=== PATIENT | female | born 1940 | race Hispanic/Latino ===

== ENCOUNTER 2016-11-17 17:16 | Inpatient (IN) | payer MEDICARE ==
--- NOTE | 2016-11-17 18:02 | Emergency Department Report ---
HPI - General Chief Complaint: Nausea/Vomiting/Diarrhea Time Seen by Provider: 11/17/16 17:47 - HPI HPI: This is a 76-year-old female presents to the emergency department via EMS from home with complaint of feeling "sick", weak and having diarrhea for the past few days. Patient says that she been having loose stool about 2-3 times per day. She denies any blood seen in the stool. The patient says that she fell yesterday because she felt slightly weak. She also developed the bed today when she was reaching for something and lost her balance. At that point she could not get back up until her daughter was able to find her and call for an ambulance. She denies any fever, nausea, vomiting, chest pain, back pain or shortness of breath. She has a history of atrial fibrillation, diabetes and hypertension. Her primary care doctor is a Dr. Murray. No recent travel or sick contacts at home. ED Past Medical Hx - Past Medical History Previous Medical History?: Yes Hx Hypertension: Yes Hx Diabetes: Yes Hx Arthritis: Yes Hx Kidney Stones: Yes Additional medical history: gout - Surgical History Hx Cholecystectomy: Yes Hx Appendectomy: Yes Additional Surgical History: vein surgery to legs - Social History Smoking Status: Never Smoker Substance Use Type: None - Medications Home Medications: Home Medications Medication Instructions Recorded Confirmed Last Taken Type Carvedilol [Coreg] 25 mg PO BID 03/24/14 11/17/16 11/17/16 History Digoxin [Lanoxin] 0.125 mg PO DAILY 03/24/14 11/17/16 11/17/16 History Omeprazole [PriLOSEC] 40 mg PO DAILY 03/24/14 11/17/16 11/17/16 History traMADol [Ultram 50 MG tab] 50 mg PO BID PRN 03/24/14 11/17/16 11/17/16 History Potassium Chloride [K-Dur] 10 meq PO QDAY #30 tablet 03/27/14 11/17/16 11/17/16 Rx Allopurinol [Zyloprim] 300 mg PO QDAY 08/14/14 11/17/16 11/17/16 History Gabapentin 400 mg PO BID 08/14/14 11/17/16 11/17/16 History Warfarin [Coumadin] 2.5 mg PO QDAY 08/14/14 11/17/16 11/17/16 History hydrALAZINE [Apresoline] 50 mg PO BID 08/14/14 11/17/16 11/17/16 History Furosemide [Lasix] 20 mg PO DAILY 11/17/16 11/17/16 11/17/16 History ED Review of Systems ROS: Stated complaint: N/V Other details as noted in HPI Comment: All other systems reviewed and negative Constitutional: weakness. denies: chills, fever Eyes: denies: eye pain, eye discharge, vision change ENT: denies: ear pain, throat pain Respiratory: denies: cough, shortness of breath, wheezing Cardiovascular: denies: chest pain, palpitations Gastrointestinal: diarrhea. denies: nausea, vomiting Genitourinary: denies: urgency, dysuria, discharge Musculoskeletal: denies: back pain, joint swelling, arthralgia Skin: denies: rash, lesions Neurological: weakness. denies: headache, numbness, paresthesias Physical Exam - Physical Exam Vital Signs: Vital Signs 11/17/16 11/17/16 11/17/16 17:35 17:36 17:41 Temperature 97.8 F Pulse Rate 92 H 92 H Respiratory 12 15 Rate Blood Pressure 113/61 O2 Sat by Pulse 95 95 Oximetry Physical Exam: GENERAL: The patient is well-developed well-nourished. HEENT: Normocephalic. Atraumatic. Extraocular motions are intact. Patient has moist mucous membranes. Pupils equal reactive to light laterally. NECK: Supple. Trachea is midline. CHEST/LUNGS: Clear to auscultation. There is no respiratory distress noted. HEART/CARDIOVASCULAR: Regular. There is no tachycardia. There is no gallop rub or murmur. ABDOMEN: Abdomen is soft, nontender. Patient has normal bowel sounds. There is no abdominal distention. SKIN: Skin is warm and dry. NEURO: The patient is awake, alert. The patient is cooperative. The patient has no focal neurologic deficits. The patient has normal speech. Cranial nerves II through XII grossly intact. MUSCULOSKELETAL: There is no tenderness or deformity. There is no limitation range of motion. There is no evidence of acute injury. ED Course Vital Signs 11/17/16 11/17/16 11/17/16 17:35 17:36 17:41 Temperature 97.8 F Pulse Rate 92 H 92 H Respiratory 12 15 Rate Blood Pressure 113/61 O2 Sat by Pulse 95 95 Oximetry ED Medical Decision Making - Lab Data Result diagrams: 11/17/16 18:05 11/17/16 18:05 - EKG Data -: EKG Interpreted by Me - EKG Data When compared to previous EKG there are: previous EKG unavailable Interpretation: other (atrial fibrillation, normal axis, normal intervals, no ST elevation [place], heart rate of 80 bpm) - Radiology Data Radiology results: report reviewed CT of the head does not show any acute process including no hemorrhage, mass, shift, diffuse edema or skull fracture. - Medical Decision Making This is a 76-year-old female presents to the emergency department with complaint of nausea, vomiting and weakness with a few falls over the past few days. The patient does not have any obvious focal, motor or sensory deficits. Her cranial nerves are intact. The patient's labs show some renal insufficiency as well as a significant urinary tract infection. Due to the patient's weakness and recent falls a CT of the head was done without contrast that did not show any bleed, shift, mass or any acute process. Patient had a abdominal and chest x-ray that did not show any acute processes well. Patient started having some episodes of hypotension which could be related to her urinary tract infection. She was given a total of 2 L of IV fluid resuscitation. No more was going to be given as the patient does have a history of CHF and the plan was to put a central line and start pressors if necessary. However shortly afterwards the patient's blood pressure appeared to rebound and at last check was systolic 115. However the patient will be admitted to hospital for further evaluation, IV antibiotics and treatment. Patient understands and agrees to plan. She's been accepted for admission by the hospitalist, Dr. Orozco. - Differential Diagnosis UTI, TIA, sepsis, [place] Critical Care Time: No Critical care attestation.: If time is entered above; I have spent that time in minutes in the direct care of this critically ill patient, excluding procedure time. ED Disposition Clinical Impression: Renal insufficiency, Weakness UTI (urinary tract infection) Qualifiers: Urinary tract infection type: acute cystitis Hematuria presence: without hematuria Qualified Code(s): N30.00 - Acute cystitis without hematuria Hypotension Qualifiers: Hypotension type: unspecified hypotension type Qualified Code(s): I95.9 - Hypotension, unspecified Disposition: OP ADMITTED IP TO THIS HOSP Is pt being admited?: Yes Condition: Stable Referrals: PRIMARY CARE, [Primary Care Provider] - 3-5 Days Time of Disposition: 23:42
[2016-11-17 18:37] LABS: BUN/Creatinine Ratio 8.66; Calcium 8.8 mg/dL (8.4-10.2); Chloride 96.4 mmol/L (98-107); Potassium 3.5 mmol/L (3.6-5.0)
[2016-11-17 18:38] LABS: Hemoglobin 11.7 gm/dl (10.1-14.3); Mean Corpuscular HGB Conc 31 % (30-34); Mean Corpuscular Hemoglobin 27 pg (28-32); Mean Corpuscular Volume 88 fl (79-97); Platelet Count 223 K/mm3 (140-440); Red Blood Count 4.31 M/mm3 (3.65-5.03); Red Cell Distribution Width 16.3 % (13.2-15.2); White Blood Count 8.5 K/mm3 (4.5-11.0)
[2016-11-17 18:42] LABS: Alanine Aminotransferase 5 units/L (7-56); Albumin 3.5 g/dL (3.9-5); Alkaline Phosphatase 203 units/L (35-129); Bilirubin,Direct 0.3 mg/dL (0-0.2); Creatine Kinase 37 units/L (30-135)
[2016-11-17 18:48] LABS: INR 2.34 (0.87-1.13)
--- NOTE | 2016-11-17 18:59 | Cat Scan Report ---
FINAL REPORT EXAM: CT HEAD/BRAIN WO CON HISTORY: weakness TECHNIQUE: CT head without contrast PRIORS: None. FINDINGS: No acute intra-axial or extra-axial hemorrhage is identified. There is no evidence of midline shift or mass effect. The ventricles and sulci are within normal limits. Contreras-white matter differentiation is intact. No acute parenchymal abnormalities seen. There are patchy and confluent hypodensities within the supratentorial white matter. Bony calvarium is grossly intact. Visualized portions of the mastoids and paranasal sinuses are unremarkable. IMPRESSION: Chronic small vessel white matter ischemic change No acute findings
[2016-11-17 19:11] LABS: Bacteria,Urine 3+ /HPF (Negative); Bilirubin,Urine NEG (Negative); Blood,Urine NEG (Negative); Ketones,Urine NEG (Negative); Leukocyte Esterase,Urine MOD (Negative); Mucus,Urine 3+ /HPF; Nitrite,Urine NEG (Negative)
[2016-11-17 19:12] LABS: WBC,Urine > 182.0 /HPF (0.0-6.0)
[2016-11-17] MEDS ORDERED: NACL 0.9% 1000 ML 1,000 ML ONE (19:30)
[2016-11-17 19:36] LABS: Albumin/Globulin Ratio 1.2 %; Bilirubin,Indirect 0.6 mg/dL; Bilirubin,Total 1.1 mg/dL (0.1-1.2); Lipase 10 units/L (13-60); Total Protein 6.8 g/dL (6.3-8.2)
[2016-11-17] MEDS ORDERED: NACL 0.9% 1000 ML 1,000 ML IV ONE ×2 (19:43→20:25)
[2016-11-17] MEDS ORDERED: ROCEPHIN/NS 1 GM/50 ML 1 GM/50 ML BAG IV ONE (19:47)
[2016-11-17] MEDS ORDERED: MILK OF MAGNESIA PO PRN (23:17)
[2016-11-17] MEDS ORDERED: D50W (25GM) IV PRN (23:17)
[2016-11-17] MEDS ORDERED: DULCOLAX PR PRN (23:17)
[2016-11-17] MEDS ORDERED: ZOFRAN IV PRN (23:17)
[2016-11-17] MEDS ORDERED: TYLENOL PO PRN (23:17)
--- NOTE | 2016-11-17 23:21 | History and Physical Report ---
History of Present Illness Date of examination: 11/17/16 History of present illness: Is is a 76-year-old man with a history of hypertension, CHF, A. fib, diabetes, gout comes emergency room because of generalized weakness, fall 2. Patient states that she had diarrhea 3 days, multiple episodes a day, which is now resolved. Also complaining of generalized weakness, family is unable to care for her at home Patient denies chest pain, palpitation, shortness of breath, cough, abdominal pain, hematochezia, dysuria, frequency, focal weakness, dysarthria, fever chills , polydipsia polyuria, hot or cold intolerance, easy bruisability, or rash or bleeding from mucosal membrane, rhinorrhea, epistaxis, earache, tinnitus, blurry vision, eye discharge, anxiety, depression. Other review of systems negative PAST SURGICAL HISTORY: Hysterectomy, cholecystectomy SOCIAL HISTORY: Denies alcohol, tobacco, drugs FAMILY HISTORY: Hypertension Medications and Allergies Allergies Allergy/AdvReac Type Severity Reaction Status Date / Time No Known Allergies Allergy Verified 03/24/14 23:03 Home Medications Medication Instructions Recorded Confirmed Last Taken Type Carvedilol [Coreg] 25 mg PO BID 03/24/14 11/17/16 11/17/16 History Digoxin [Lanoxin] 0.125 mg PO DAILY 03/24/14 11/17/16 11/17/16 History Omeprazole [PriLOSEC] 40 mg PO DAILY 03/24/14 11/17/16 11/17/16 History traMADol [Ultram 50 MG tab] 50 mg PO BID PRN 03/24/14 11/17/16 11/17/16 History Potassium Chloride [K-Dur] 10 meq PO QDAY #30 tablet 03/27/14 11/17/16 11/17/16 Rx Allopurinol [Zyloprim] 300 mg PO QDAY 08/14/14 11/17/16 11/17/16 History Gabapentin 400 mg PO BID 08/14/14 11/17/16 11/17/16 History Warfarin [Coumadin] 2.5 mg PO QDAY 08/14/14 11/17/16 11/17/16 History hydrALAZINE [Apresoline] 50 mg PO BID 08/14/14 11/17/16 11/17/16 History Furosemide [Lasix] 20 mg PO DAILY 11/17/16 11/17/16 11/17/16 History Exam - Physical Exam Narrative exam: Gen. appearance: Patient lying in bed, no apparent distress HEENT: Normocephalic, atraumatic, pupils equally round and reactive to light, extraocular movement intact, and no sclericterus,. No JVD or thyromegaly or nodule,neck supple, no carotid bruit ,mucous membranes moist, no exudate or erythema Heart: S1, S2, regular rate and rhythm Lungs: Clear to auscultation bilaterally, breathing comfortable Abdomen: Positive bowel sounds, nontender, nondistended, no organomegaly Extremity: No edema, cyanosis, clubbing Skin: No rash, nodules, warm, dry Neuro: Oriented 3, cranial nerves II-12 intact, speech is fluent, motor and sensory intact - Constitutional Vitals: Temp Pulse Resp BP Pulse Ox 97.9 F 79 14 92/44 93 11/17/16 19:25 11/17/16 19:25 11/17/16 19:25 11/17/16 19:06 11/17/16 19:06 Results - Labs CBC & Chem 7: 11/17/16 18:05 11/17/16 18:05 Labs: Abnormal lab results 11/17/16 11/17/16 11/17/16 Range/Units 18:05 18:05 18:05 MCH 27 L (28-32) pg RDW 16.3 H (13.2-15.2) % PT (12.2-14.9) Sec. INR (0.87-1.13) APTT (24.2-36.6) Sec. Potassium 3.5 L (3.6-5.0) mmol/L Chloride 96.4 L (98-107) mmol/L Creatinine 1.5 H (0.7-1.2) mg/dL Glucose 131 H (65-100) mg/dL Direct Bilirubin 0.3 H (0-0.2) mg/dL ALT 5 L (7-56) units/L Alkaline Phosphatase 203 H (35-129) units/L Albumin 3.5 L (3.9-5) g/dL Lipase 10 L (13-60) units/L Urine WBC (Auto) (0.0-6.0) /HPF 11/17/16 11/17/16 Range/Units 18:05 18:52 MCH (28-32) pg RDW (13.2-15.2) % PT 25.7 H (12.2-14.9) Sec. INR 2.34 H (0.87-1.13) APTT 53.0 H (24.2-36.6) Sec. Potassium (3.6-5.0) mmol/L Chloride (98-107) mmol/L Creatinine (0.7-1.2) mg/dL Glucose (65-100) mg/dL Direct Bilirubin (0-0.2) mg/dL ALT (7-56) units/L Alkaline Phosphatase (35-129) units/L Albumin (3.9-5) g/dL Lipase (13-60) units/L Urine WBC (Auto) > 182.0 H (0.0-6.0) /HPF - Imaging and Cardiology Chest x-ray: report reviewed Abdominal x-ray: report reviewed CT Scan - head: report reviewed Assessment and Plan Failure to thrive UTI Hypertension Diabetes A. fib CHF, stable Admit medicine Start IV Rocephin, consult physical therapy Check fingersticks and initiate insulin sliding scale DVT prophylaxis initiated, INR greater than 2
[2016-11-18 08:19] LABS: Basophils % (Auto) 0.7 % (0.0-1.8); Eosinophils % (Auto) 2.3 % (0.0-4.3); Hematocrit 36.6 % (30.3-42.9); Hemoglobin 11.5 gm/dl (10.1-14.3); Mean Corpuscular HGB Conc 31 % (30-34); Mean Corpuscular Hemoglobin 28 pg (28-32); Mean Corpuscular Volume 88 fl (79-97); Platelet Count 216 K/mm3 (140-440); Red Blood Count 4.16 M/mm3 (3.65-5.03); White Blood Count 6.4 K/mm3 (4.5-11.0)
--- NOTE | 2016-11-18 08:38 | XRay Report ---
ABDOMINAL SERIES: History: Weakness, nausea, vomiting. Erect chest film shows no acute or significant changes involving the heart or lung ross. There is no evidence of free air beneath the diaphragms. The gas pattern within the abdomen is unremarkable. There is no evidence of bowel dilatation, significant air-fluid levels, or masses. A 1.4 cm calcified structure in the left upper quadrant may represent a calcified splenic aneurysm. Cholecystectomy changes. IMPRESSION: No acute abdominal process identified.
[2016-11-18 08:40] LABS: BUN/Creatinine Ratio 12.3; Calcium 8.7 mg/dL (8.4-10.2); Chloride 104.6 mmol/L (98-107); Potassium 3.9 mmol/L (3.6-5.0)
--- NOTE | 2016-11-18 10:16 | Admit Criteria Form ---
Admission Criteria Documentation: URINARY COMPLICATIONS Clinical Indications for Inpatient Care (Place 'X' for any and all applicable criteria): Ongoing inpatient care may be indicated for urinary complications with ANY ONE of the following: [X]I. Urinary tract infection requiring inpatient care as indicated by ANY ONE of the following(8)(19)(20): [ ]a) Severe symptoms (eg, high fever, severe pain) [ ]b) Vomiting or dehydration requiring ongoing inpatient care [X]c) IV antibiotic needs that cannot be managed at lower level of care [ ]d) Hemodynamic instability [ ]e) Obstruction of collecting system by stone or tumor [ ]II. Urinary retention requiring drainage or surgery (3)(4)(5)(17)(18) [X]III. Renal failure (Use Renal Failure Criteria for further information.) [ ]IV. Oliguria(30) [ ]V. Post obstructive diuresis requiring close monitoring of urine output and intravenous compensation for excessive fluid losses(33) Extended stay beyond goal length of stay for primary condition may be needed until ALL of the following are present(3)(4)(5)(8): [ ]a) Renal function (creatinine) at baseline, or daily decreases in creatinine consistent with renal function return [ ]b) Voiding adequately or with urinary catheter or percutaneous suprapubic tube and management regimen in place that is performable at lower level of care. [ ]c) Urine output adequate [ ]d) Fever absent or resolving [ ]e) Infection absent or treatable at next level of care The original [employer] content created by [employer] has been revised. The portions of the content which have been revised are identified through the use of italic text or in bold, and [facility] has neither reviewed nor approved the modified material. All other unmodified content is copyright [employer] Please see references footnoted in the original [employer] edition 2016 Admission Criteria Met: Yes
[2016-11-18] MEDS ORDERED: ULTRAM PO PRN (10:33)
[2016-11-18] MEDS ORDERED: PNEUMOVAX 23 IM ONE (12:00)
[2016-11-18] MEDS: NOVOLOG SUB-Q SCH ×3 (12:28→17:05)
[2016-11-18] MEDS: COUMADIN PO SCH (17:04)
--- NOTE | 2016-11-18 17:43 | Progress Note ---
Assessment and Plan - Patient Problems (1) UTI (urinary tract infection) Current Visit: Yes Status: Acute Qualifiers: Urinary tract infection type: acute cystitis Hematuria presence: without hematuria Indwelling urinary catheter type: I Encounter type: E Qualified Code(s): N30.00 - Acute cystitis without hematuria Plan to address problem: Iv abx, ivf, supportive care, (2) Weakness Current Visit: Yes Status: Acute Plan to address problem: PT consulted, (3) Acute on chronic renal failure Current Visit: No Status: Chronic Plan to address problem: IVF, supportive care, monitor uop q shift, (4) Diabetes mellitus Current Visit: No Status: Chronic Qualifiers: Diabetes mellitus type: D Diabetes mellitus complication status: D Diabetes mellitus complication detail: D Diabetic retinopathy severity: D Proliferative retinopathy type: P Diabetes mellitus macular edema: D Diabetes mellitus adjunct faculty for medical terminology insulin use: D Laterality: L Chronic kidney disease stage: C Plan to address problem: ADA diet, insulin, accu check (5) Hypertension Current Visit: No Status: Chronic Qualifiers: Hypertension type: H Plan to address problem: monitor bp q shift, continue current therapy (6) DVT prophylaxis Current Visit: Yes Status: Acute History Interval history: Pt resting in bed, No reported nursing events. Pt medially stable overnight. Hospitalist Physical - Constitutional Vitals: Temp Pulse Resp BP Pulse Ox 97.6 F 74 20 121/56 99 11/18/16 08:41 11/18/16 08:41 11/18/16 08:41 11/18/16 08:41 11/18/16 13:25 General appearance: Present: no acute distress - EENT Eyes: Present: PERRL ENT: hearing intact - Neck Neck: Present: supple - Respiratory Respiratory: bilateral: diminished - Cardiovascular Rhythm: regular Heart Sounds: Present: S1 & S2 - Extremities Extremities: no ischemia Peripheral Pulses: within normal limits - Abdominal General gastrointestinal: soft, non-tender, non-distended - Integumentary Integumentary: Present: clear, dry Results - Labs CBC & Chem 7: 11/18/16 07:25 11/18/16 07:25 Labs: Laboratory Last Values WBC 6.4 K/mm3 (4.5-11.0) 11/18/16 07:25 RBC 4.16 M/mm3 (3.65-5.03) 11/18/16 07:25 Hgb 11.5 gm/dl (10.1-14.3) 11/18/16 07:25 Hct 36.6 % (30.3-42.9) 11/18/16 07:25 MCV 88 fl (79-97) 11/18/16 07:25 MCH 28 pg (28-32) 11/18/16 07:25 MCHC 31 % (30-34) 11/18/16 07:25 RDW 16.0 % (13.2-15.2) H 11/18/16 07:25 Plt Count 216 K/mm3 (140-440) 11/18/16 07:25 Lymph % (Auto) 20.1 % (13.4-35.0) 11/18/16 07:25 [place] % (Auto) 8.6 % (0.0-7.3) H 11/18/16 07:25 Eos % (Auto) 2.3 % (0.0-4.3) 11/18/16 07:25 Baso % (Auto) 0.7 % (0.0-1.8) 11/18/16 07:25 Lymph # 1.3 K/mm3 (1.2-5.4) 11/18/16 07:25 [place] # 0.5 K/mm3 (0.0-0.8) 11/18/16 07:25 Eos # 0.1 K/mm3 (0.0-0.4) 11/18/16 07:25 Baso # 0.0 K/mm3 (0.0-0.1) 11/18/16 07:25 Seg Neutrophils % 68.3 % (40.0-70.0) 11/18/16 07:25 Seg Neutrophils # 4.4 K/mm3 (1.8-7.7) 11/18/16 07:25 PT 25.7 Sec. (12.2-14.9) H 11/17/16 18:05 INR 2.34 (0.87-1.13) H 11/17/16 18:05 APTT 53.0 Sec. (24.2-36.6) H 11/17/16 18:05 Sodium 143 mmol/L (137-145) 11/18/16 07:25 Potassium 3.9 mmol/L (3.6-5.0) 11/18/16 07:25 Chloride 104.6 mmol/L (98-107) 11/18/16 07:25 Carbon Dioxide 26 mmol/L (22-30) 11/18/16 07:25 Anion Gap 16 mmol/L 11/18/16 07:25 BUN 16 mg/dL (7-17) 11/18/16 07:25 Creatinine 1.3 mg/dL (0.7-1.2) H 11/18/16 07:25 Estimated GFR 40 ml/min 11/18/16 07:25 BUN/Creatinine Ratio 12.30 % 11/18/16 07:25 Glucose 138 mg/dL (65-100) H 11/18/16 07:25 POC Glucose 157 (70-105) H 11/18/16 11:39 Calcium 8.7 mg/dL (8.4-10.2) 11/18/16 07:25 Total Bilirubin 1.1 mg/dL (0.1-1.2) 11/17/16 18:05 Direct Bilirubin 0.3 mg/dL (0-0.2) H 11/17/16 18:05 Indirect Bilirubin 0.6 mg/dL 11/17/16 18:05 AST 12 units/L (5-40) 11/17/16 18:05 ALT 5 units/L (7-56) L 11/17/16 18:05 Alkaline Phosphatase 203 units/L (35-129) H 11/17/16 18:05 Total Creatine Kinase 37 units/L (30-135) 11/17/16 18:05 Troponin T < 0.010 ng/mL (0.00-0.029) 11/17/16 18:05 Total Protein 6.8 g/dL (6.3-8.2) 11/17/16 18:05 Albumin 3.5 g/dL (3.9-5) L 11/17/16 18:05 Albumin/Globulin Ratio 1.2 % 11/17/16 18:05 Lipase 10 units/L (13-60) L 11/17/16 18:05 TSH 2.770 mlU/mL (0.270-4.200) 11/17/16 18:05 Urine Color Terese (Yellow) 11/17/16 18:52 Urine Turbidity Turbid (Clear) 11/17/16 18:52 Urine pH 5.0 (5.0-7.0) 11/17/16 18:52 Ur Specific [place] 1.016 (1.003-1.030) 11/17/16 18:52 Urine Protein 100 mg/dl mg/dL (Negative) 11/17/16 18:52 Urine Glucose (UA) Neg mg/dL (Negative) 11/17/16 18:52 Urine Ketones Neg mg/dL (Negative) 11/17/16 18:52 Urine Blood Neg (Negative) 11/17/16 18:52 Urine Nitrite Neg (Negative) 11/17/16 18:52 Urine Bilirubin Neg (Negative) 11/17/16 18:52 Urine Urobilinogen 2.0 mg/dL (<2.0) 11/17/16 18:52 Ur Leukocyte Esterase Mod (Negative) 11/17/16 18:52 Urine WBC (Auto) > 182.0 /HPF (0.0-6.0) H 11/17/16 18:52 Urine RBC (Auto) 60.0 /HPF (0.0-6.0) 11/17/16 18:52 U Epithel Cells (Auto) 3.0 /HPF (0-13.0) 11/17/16 18:52 Urine Bacteria (Auto) 3+ /HPF (Negative) 11/17/16 18:52 Urine WBC Clumps 3+ /HPF 11/17/16 18:52 Calcium Oxalate Crystal 1+ 11/17/16 18:52 Urine Mucus 3+ /HPF 11/17/16 18:52
[2016-11-18] MEDS ORDERED: NEURONTIN PO SCH (22:00)
[2016-11-19] MEDS: ROCEPHIN/NS 1 GM/50 ML 1 GM/50 ML BAG IV SCH ×2 (00:15→21:03)
[2016-11-19] MEDS: NEURONTIN PO SCH ×3 (00:15→21:04)
[2016-11-19] MEDS: NOVOLOG SUB-Q SCH ×5 (01:04→23:56)
[2016-11-19 06:54] LABS: INR 2.49 (0.87-1.13)
[2016-11-19] MEDS ORDERED: NON-FORMULARY (Omeprazole [Prilosec] 40 MG) PO SCH (10:00)
[2016-11-19] MEDS ORDERED: K-DUR PO SCH (10:00)
[2016-11-19] MEDS ORDERED: APRESOLINE PO SCH ×2 (10:00→22:00)
--- NOTE | 2016-11-19 10:19 | Progress Note ---
Assessment and Plan Assessment and plan: 1. Urinary tract infection. Continue IV and Biaxin follow cultures. 2. Accelerated hypertension. Resume home medications. 3. Generalized weakness. PT evaluation pending. 4. Acute renal failure. Etiology likely secondary to vasomotor nephropathy/ dehydration. Continue IV fluid hydration. Baseline creatinine in August 2014 was 1.2. History Interval history: No new issues overnight. Hospitalist Physical - Constitutional Vitals: Temp Pulse Resp BP Pulse Ox 98.6 F 87 18 124/58 97 11/18/16 23:14 11/18/16 23:14 11/19/16 08:59 11/18/16 23:14 11/18/16 23:14 General appearance: Present: no acute distress - EENT Eyes: Present: PERRL, EOM intact ENT: hearing intact, clear oral mucosa, dentition normal - Neck Neck: Present: supple, normal ROM - Respiratory Respiratory effort: normal Respiratory: bilateral: CTA - Cardiovascular Rhythm: regular Heart Sounds: Present: S1 & S2. Absent: gallop, rub - Extremities Extremities: no ischemia, No edema, Full ROM - Abdominal General gastrointestinal: soft, non-tender, non-distended, normal bowel sounds - Integumentary Integumentary: Present: clear, warm, dry - Neurologic Neurologic: CNII-XII intact, moves all extremities Results - Labs CBC & Chem 7: 11/18/16 07:25 11/18/16 07:25 Labs: Laboratory Last Values WBC 6.4 K/mm3 (4.5-11.0) 11/18/16 07:25 RBC 4.16 M/mm3 (3.65-5.03) 11/18/16 07:25 Hgb 11.5 gm/dl (10.1-14.3) 11/18/16 07:25 Hct 36.6 % (30.3-42.9) 11/18/16 07:25 MCV 88 fl (79-97) 11/18/16 07:25 MCH 28 pg (28-32) 11/18/16 07:25 MCHC 31 % (30-34) 11/18/16 07:25 RDW 16.0 % (13.2-15.2) H 11/18/16 07:25 Plt Count 216 K/mm3 (140-440) 11/18/16 07:25 Lymph % (Auto) 20.1 % (13.4-35.0) 11/18/16 07:25 [place] % (Auto) 8.6 % (0.0-7.3) H 11/18/16 07:25 Eos % (Auto) 2.3 % (0.0-4.3) 11/18/16 07:25 Baso % (Auto) 0.7 % (0.0-1.8) 11/18/16 07:25 Lymph # 1.3 K/mm3 (1.2-5.4) 11/18/16 07:25 [place] # 0.5 K/mm3 (0.0-0.8) 11/18/16 07:25 Eos # 0.1 K/mm3 (0.0-0.4) 11/18/16 07:25 Baso # 0.0 K/mm3 (0.0-0.1) 11/18/16 07:25 Seg Neutrophils % 68.3 % (40.0-70.0) 11/18/16 07:25 Seg Neutrophils # 4.4 K/mm3 (1.8-7.7) 11/18/16 07:25 PT 27.0 Sec. (12.2-14.9) H 11/19/16 06:05 INR 2.49 (0.87-1.13) H 11/19/16 06:05 APTT 53.0 Sec. (24.2-36.6) H 11/17/16 18:05 Sodium 143 mmol/L (137-145) 11/18/16 07:25 Potassium 3.9 mmol/L (3.6-5.0) 11/18/16 07:25 Chloride 104.6 mmol/L (98-107) 11/18/16 07:25 Carbon Dioxide 26 mmol/L (22-30) 11/18/16 07:25 Anion Gap 16 mmol/L 11/18/16 07:25 BUN 16 mg/dL (7-17) 11/18/16 07:25 Creatinine 1.3 mg/dL (0.7-1.2) H 11/18/16 07:25 Estimated GFR 40 ml/min 11/18/16 07:25 BUN/Creatinine Ratio 12.30 % 11/18/16 07:25 Glucose 138 mg/dL (65-100) H 11/18/16 07:25 POC Glucose 107 (70-105) H 11/19/16 06:23 Calcium 8.7 mg/dL (8.4-10.2) 11/18/16 07:25 Total Bilirubin 1.1 mg/dL (0.1-1.2) 11/17/16 18:05 Direct Bilirubin 0.3 mg/dL (0-0.2) H 11/17/16 18:05 Indirect Bilirubin 0.6 mg/dL 11/17/16 18:05 AST 12 units/L (5-40) 11/17/16 18:05 ALT 5 units/L (7-56) L 11/17/16 18:05 Alkaline Phosphatase 203 units/L (35-129) H 11/17/16 18:05 Total Creatine Kinase 37 units/L (30-135) 11/17/16 18:05 Troponin T < 0.010 ng/mL (0.00-0.029) 11/17/16 18:05 Total Protein 6.8 g/dL (6.3-8.2) 11/17/16 18:05 Albumin 3.5 g/dL (3.9-5) L 11/17/16 18:05 Albumin/Globulin Ratio 1.2 % 11/17/16 18:05 Lipase 10 units/L (13-60) L 11/17/16 18:05 TSH 2.770 mlU/mL (0.270-4.200) 11/17/16 18:05 Urine Color Terese (Yellow) 11/17/16 18:52 Urine Turbidity Turbid (Clear) 11/17/16 18:52 Urine pH 5.0 (5.0-7.0) 11/17/16 18:52 Ur Specific [place] 1.016 (1.003-1.030) 11/17/16 18:52 Urine Protein 100 mg/dl mg/dL (Negative) 11/17/16 18:52 Urine Glucose (UA) Neg mg/dL (Negative) 11/17/16 18:52 Urine Ketones Neg mg/dL (Negative) 11/17/16 18:52 Urine Blood Neg (Negative) 11/17/16 18:52 Urine Nitrite Neg (Negative) 11/17/16 18:52 Urine Bilirubin Neg (Negative) 11/17/16 18:52 Urine Urobilinogen 2.0 mg/dL (<2.0) 11/17/16 18:52 Ur Leukocyte Esterase Mod (Negative) 11/17/16 18:52 Urine WBC (Auto) > 182.0 /HPF (0.0-6.0) H 11/17/16 18:52 Urine RBC (Auto) 60.0 /HPF (0.0-6.0) 11/17/16 18:52 U Epithel Cells (Auto) 3.0 /HPF (0-13.0) 11/17/16 18:52 Urine Bacteria (Auto) 3+ /HPF (Negative) 11/17/16 18:52 Urine WBC Clumps 3+ /HPF 11/17/16 18:52 Calcium Oxalate Crystal 1+ 11/17/16 18:52 Urine Mucus 3+ /HPF 11/17/16 18:52
[2016-11-19] MEDS: ZYLOPRIM PO SCH (10:46)
[2016-11-19] MEDS: LANOXIN PO SCH (10:46)
[2016-11-19] MEDS: PROTONIX PO SCH (10:46)
[2016-11-19] MEDS: K-DUR PO SCH (10:47)
[2016-11-19] MEDS: LASIX PO SCH (10:47)
[2016-11-19] MEDS: COREG PO SCH ×2 (11:13→21:04)
[2016-11-19] MEDS: APRESOLINE PO SCH ×2 (11:13→21:04)
[2016-11-19] MEDS: COUMADIN PO SCH (17:40)
[2016-11-19] MEDS ORDERED: COREG PO SCH (22:00)
[2016-11-20] MEDS: NOVOLOG SUB-Q SCH ×2 (07:35→13:04)
--- NOTE | 2016-11-20 08:08 | Discharge Summary ---
Providers - Providers Date of Admission: 11/17/16 23:17 Date of discharge: 11/20/16 Attending physician: JUAN GUZMAN 11/18/16 00:03 Physical Therapy Evaluation and Treat [CONS] Routine Comment: Reason For Exam: deconditioned Primary care physician: CIGARETTE VENDOR Hospitalization Condition: Stable Hospital course: 76-year-old female who was admitted through the emerge department with generalized weakness. Patient was evaluated in found to have a diagnosis of UTI with greater than 182 WBCs in the urine. Patient was treated with Rocephin IV. Blood cultures were negative. Patient was also noted to have acute renal failure secondary to dehydration/prerenal azotemia. Initial creatinine was 1.5. After having fluid hydration, patient's creatinine returned to normal range. Patient was evaluated by physical therapy and felt she could be discharged home with home health. Prior to discharge, patient was noted to have accelerated hypertension with adjustments in her medications. Blood pressure is normalized. Patient's is felt to have received maximal hospital benefit. Dedicated discharge time 32 minutes. Disposition: DC/TX HOME UNDER HOME HEALTH - Discharge Diagnoses (1) Renal insufficiency Status: Resolved (2) UTI (urinary tract infection) Status: Resolved Qualifiers: Urinary tract infection type: acute cystitis Hematuria presence: without hematuria Indwelling urinary catheter type: I Encounter type: E Qualified Code(s): N30.00 - Acute cystitis without hematuria (3) Weakness Status: Acute (4) Acute renal failure Status: Acute Qualifiers: Acute renal failure type: A Core Measure Documentation - Palliative Care Palliative Care/ Comfort Measures: Not Applicable - Core Measures Any of the following diagnoses?: none Exam - Constitutional Vitals: Temp Pulse Resp BP Pulse Ox 97.9 F 71 18 142/71 97 11/19/16 23:00 11/19/16 23:00 11/19/16 23:00 11/19/16 23:00 11/19/16 23:00 General appearance: Present: no acute distress, well-nourished - EENT Eyes: Present: PERRL ENT: hearing intact, clear oral mucosa - Neck Neck: Present: supple, normal ROM - Respiratory Respiratory effort: normal Respiratory: bilateral: CTA - Cardiovascular Heart Sounds: Present: S1 & S2. Absent: rub, click - Extremities Extremities: pulses symmetrical, No edema Peripheral Pulses: within normal limits - Abdominal General gastrointestinal: Present: soft, non-tender, non-distended, normal bowel sounds Female genitourinary: Present: normal - Integumentary Integumentary: Present: clear, warm, dry - Musculoskeletal Musculoskeletal: gait normal, strength equal bilaterally - Psychiatric Psychiatric: appropriate mood/affect, intact judgment & insight - Neurologic Neurologic: CNII-XII intact, moves all extremities Plan Activity: no restrictions Weight Bearing Status: Weight Bear as Tolerated Diet: regular Special Instructions: home health RN Follow up with: PRIMARY CARE, [Primary Care Provider] - 3-5 Days Forms: Warfarin Discharge Instruction Prescriptions: Carvedilol [Coreg] 25 mg PO BID #60 tablet Cefuroxime Axetil [Ceftin] 500 mg PO Q12H #10 ml Digoxin [Lanoxin] 0.125 mg PO DAILY #30 tablet hydrALAZINE [Apresoline TAB] 50 mg PO BID #60 tablet Potassium Chloride [K-Dur] 10 meq PO QDAY #30 tablet Warfarin [Coumadin] 2.5 mg PO QDAY #30 tablet
[2016-11-20 08:35] LABS: Basophils % (Auto) 0.9 % (0.0-1.8); Eosinophils % (Auto) 2.7 % (0.0-4.3); Hematocrit 36.7 % (30.3-42.9); Hemoglobin 11.7 gm/dl (10.1-14.3); Mean Corpuscular HGB Conc 32 % (30-34); Mean Corpuscular Hemoglobin 28 pg (28-32); Mean Corpuscular Volume 86 fl (79-97); Platelet Count 232 K/mm3 (140-440); Red Blood Count 4.26 M/mm3 (3.65-5.03); White Blood Count 4.3 K/mm3 (4.5-11.0)
[2016-11-20 08:42] LABS: INR 1.95 (0.87-1.13)
[2016-11-20 08:55] LABS: BUN/Creatinine Ratio 10.9; Calcium 8.7 mg/dL (8.4-10.2); Chloride 102.3 mmol/L (98-107); Potassium 3.5 mmol/L (3.6-5.0)
[2016-11-20] MEDS: ZYLOPRIM PO SCH (11:10)
[2016-11-20] MEDS: APRESOLINE PO SCH (11:11)
[2016-11-20] MEDS: NEURONTIN PO SCH (11:11)
[2016-11-20] MEDS: K-DUR PO SCH (11:11)
[2016-11-20] MEDS: LASIX PO SCH (11:11)
[2016-11-20] MEDS: LANOXIN PO SCH (11:12)
[2016-11-20] MEDS: PROTONIX PO SCH (11:12)
[2016-11-20] MEDS: COREG PO SCH (11:12)
[2016-11-20] MEDS: COUMADIN PO SCH (18:03)
[2016-11-20 18:06] VITALS: BP 134/68
== END 2016-11-20 17:45 | disposition home health service (06) | DRG 683 ==
LOC: ED 17:16 → 3A 23:17
PROVIDERS: ADMIT Internal Medicine; ATTEND Hospitalist
DX: N17.9 Acute kidney failure, unspecified (principal); I13.0 Hypertensive heart and chronic kidney disease with heart failure and stage 1 through stage 4 chronic kidney disease, or unspecified chronic kidney disease; N30.00 Acute cystitis without hematuria; I50.9 Heart failure, unspecified; R62.7 Adult failure to thrive; I48.91 Unspecified atrial fibrillation; E11.22 Type 2 diabetes mellitus with diabetic chronic kidney disease; M19.90 Unspecified osteoarthritis, unspecified site; I95.9 Hypotension, unspecified; M10.9 Gout, unspecified; N18.9 Chronic kidney disease, unspecified; Z87.442 Personal history of urinary calculi; Z90.49 Acquired absence of other specified parts of digestive tract; Z90.710 Acquired absence of both cervix and uterus; Z82.49 Family history of ischemic heart disease and other diseases of the circulatory system; Z79.899 Other long term (current) drug therapy
CPT/HCPCS: 36415; 70450; 74022; 80048; 80074; 81001; 82550; 82962; 83690; 84443; 84484; 85025; 85027; 85610; 85730; 87040; 87086; 90732; 93005; 93010; 96361; 96365; 96366; 96372; G8978-GP; G8979-GP; G8980-GP; J0696; J1815; J7030

== ENCOUNTER 2017-08-04 18:23 | Emergency (ER) | payer MEDICARE ==
[2017-08-04 19:54] LABS: Basophils % (Auto) 0.6 % (0.0-1.8); Eosinophils % (Auto) 1.3 % (0.0-4.3); Hematocrit 33.1 % (30.3-42.9); Hemoglobin 10.3 gm/dl (10.1-14.3); Mean Corpuscular HGB Conc 31 % (30-34); Mean Corpuscular Hemoglobin 26 pg (28-32); Mean Corpuscular Volume 84 fl (79-97); Platelet Count 194 K/mm3 (140-440); Red Blood Count 3.94 M/mm3 (3.65-5.03); Red Cell Distribution Width 16.8 % (13.2-15.2); White Blood Count 5.4 K/mm3 (4.5-11.0)
[2017-08-04 20:07] LABS: Calcium 8.5 mg/dL (8.4-10.2); Chloride 100.3 mmol/L (98-107); Potassium 3.9 mmol/L (3.6-5.0)
[2017-08-04 20:10] LABS: INR 2.7 (0.87-1.13)
[2017-08-04 20:25] LABS: Partial Thromboplastin Time 60.9 Sec. (24.2-36.6)
[2017-08-04] MEDS ORDERED: LEVAQUIN PO ONE (20:54)
--- NOTE | 2017-08-04 20:59 | Emergency Department Report ---
ED General Adult HPI - General Chief complaint: Nausea/Vomiting/Diarrhea Stated complaint: DIARRHEA Time Seen by Provider: 08/04/17 20:42 Source: patient, EMS Mode of arrival: Stretcher Limitations: No Limitations - History of Present Illness Initial comments: Patient is 76 years old female history of congestive heart failure, presented to the ER for evaluation of watery diarrhea for the last 4 days. Patient denied any blood or mucus. Denied any fever, nausea or vomiting. Patient stated that she is having difficulty cleaning herself, she stated that she lives by herself and nobody is helping her. She has one daughter and she is not willing to help. -: days(s) - Related Data Home Medications Medication Instructions Recorded Confirmed Last Taken Omeprazole [PriLOSEC] 40 mg PO DAILY 03/24/14 08/04/17 11/17/16 Allopurinol [Zyloprim] 300 mg PO QDAY 08/14/14 08/04/17 11/17/16 Gabapentin 600 mg PO BID 08/14/14 08/04/17 11/17/16 Previous Rx's Medication Instructions Recorded Last Taken Type Carvedilol [Coreg] 25 mg PO BID #60 tablet 11/20/16 Unknown Rx Digoxin [Lanoxin] 0.125 mg PO DAILY #30 tablet 11/20/16 Unknown Rx Warfarin [Coumadin] 2.5 mg PO QDAY #30 tablet 11/20/16 Unknown Rx hydrALAZINE [Apresoline TAB] 50 mg PO BID #60 tablet 11/20/16 Unknown Rx Allergies Allergy/AdvReac Type Severity Reaction Status Date / Time No Known Allergies Allergy Verified 03/24/14 23:03 ED Review of Systems ROS: Stated complaint: DIARRHEA Other details as noted in HPI Comment: All other systems reviewed and negative Constitutional: denies: chills, fever Respiratory: denies: cough, orthopnea, shortness of breath, SOB with exertion, SOB at rest Cardiovascular: denies: chest pain, palpitations, dyspnea on exertion Gastrointestinal: diarrhea. denies: abdominal pain, nausea, vomiting, constipation, hematemesis, melena, hematochezia Neurological: denies: headache, weakness, numbness, paresthesias, confusion ED Past Medical Hx - Past Medical History Previous Medical History?: Yes Hx Hypertension: Yes Hx Congestive Heart Failure: Yes Hx Diabetes: Yes Hx Arthritis: Yes Hx Kidney Stones: Yes Additional medical history: gout - Surgical History Past Surgical History?: Yes Hx Cholecystectomy: Yes Hx Appendectomy: Yes Additional Surgical History: vein surgery to legs - Social History Smoking Status: Never Smoker Substance Use Type: None - Medications Home Medications: Home Medications Medication Instructions Recorded Confirmed Last Taken Type Omeprazole [PriLOSEC] 40 mg PO DAILY 03/24/14 08/04/17 11/17/16 History Allopurinol [Zyloprim] 300 mg PO QDAY 08/14/14 08/04/17 11/17/16 History Gabapentin 600 mg PO BID 08/14/14 08/04/17 11/17/16 History Carvedilol [Coreg] 25 mg PO BID #60 tablet 11/20/16 08/04/17 Unknown Rx Digoxin [Lanoxin] 0.125 mg PO DAILY #30 tablet 11/20/16 08/04/17 Unknown Rx Warfarin [Coumadin] 2.5 mg PO QDAY #30 tablet 11/20/16 08/04/17 Unknown Rx hydrALAZINE [Apresoline TAB] 50 mg PO BID #60 tablet 11/20/16 08/04/17 Unknown Rx ED Physical Exam - General Limitations: No Limitations General appearance: alert, in no apparent distress - Head Head exam: Present: atraumatic, normocephalic, normal inspection - Eye Eye exam: Present: normal appearance, PERRL, EOMI - ENT ENT exam: Present: normal exam, normal orophraynx, mucous membranes moist - Neck Neck exam: Present: normal inspection, full ROM. Absent: tenderness, meningismus, lymphadenopathy, thyromegaly - Respiratory Respiratory exam: Present: normal lung sounds bilaterally. Absent: respiratory distress, wheezes, rales, rhonchi, stridor, chest wall tenderness, accessory muscle use, decreased breath sounds, prolonged expiratory - Cardiovascular Cardiovascular Exam: Present: irregular rhythm - GI/Abdominal GI/Abdominal exam: Present: soft, normal bowel sounds. Absent: distended, tenderness, guarding, rebound, rigid, hyperactive bowel sounds, hypoactive bowel sounds, organomegaly, mass, bruit, pulsatile mass, hernia - Rectal Rectal exam: Present: deferred - Extremities Exam Extremities exam: Present: normal inspection, full ROM, normal capillary refill , pedal edema. Absent: tenderness, joint swelling, calf tenderness - Neurological Exam Neurological exam: Present: alert, oriented X3, CN II-XII intact, normal gait - Psychiatric Psychiatric exam: Present: normal affect, normal mood. Absent: depressed, agitated, anxious, flat affect - Skin Skin exam: Present: warm, intact, normal color ED Course Vital Signs 08/04/17 08/04/17 19:22 20:08 Temperature 97.8 F Pulse Rate 76 Respiratory 12 20 Rate Blood Pressure 154/65 O2 Sat by Pulse 95 98 Oximetry ED Medical Decision Making - Lab Data Result diagrams: 08/04/17 19:31 08/04/17 19:31 - Medical Decision Making Patient looks fine, labs is normal except for elevated PTT and INR. INR is therapeutic. Patient complaint at this moment is social, since she does not have any one to help her clean-up after her frequent diarrhea. I believe her diarrhea is infectious,since it persist and usually her diarrhea clear after Imodium. I will order a stool culture and started her on Levaquin. Patient does not meet criteria for admission. Hold the patient for social consult in the morning. Critical care attestation.: If time is entered above; I have spent that time in minutes in the direct care of this critically ill patient, excluding procedure time. ED Disposition Clinical Impression: Diarrhea Disposition: DC-01 TO HOME OR SELFCARE Is pt being admited?: No Condition: Stable Instructions: Acute Diarrhea (ED) Referrals: PRIMARY CARE, [Primary Care Provider] - 3-5 Days
[2017-08-04 21:15] VITALS: BP 163/60
[2017-08-04 22:20] LABS: Bacteria,Urine 1+ /HPF (Negative); Bilirubin,Urine NEG (Negative); Blood,Urine SM (Negative); Ketones,Urine NEG (Negative); Leukocyte Esterase,Urine LG (Negative); Nitrite,Urine NEG (Negative); Urobilinogen,Urine < 2.0 mg/dL (<2.0)
--- NOTE | 2017-08-04 22:25 | XRay Report ---
FINAL REPORT PROCEDURE: XR CHEST 1V AP TECHNIQUE: Chest radiograph anteroposterior view. CPT 19579 HISTORY: CHF COMPARISON: No prior studies are available for comparison. FINDINGS: Heart: Normal. Mediastinum/Vessels: There is mild prominence of the upper lobe pulmonary veins. Lungs/Pleural space: Clear. Bony thorax: No acute osseous abnormality. Life support devices: None. IMPRESSION: If this radiograph was performed in erect position prominent upper lobe pulmonary veins may represent pulmonary venous congestion. .
== END 2017-08-04 22:51 | disposition home or self-care (01) ==
LOC: ED 18:23
DX: R19.7 Diarrhea, unspecified (principal); I10 Essential (primary) hypertension; I50.9 Heart failure, unspecified; E11.9 Type 2 diabetes mellitus without complications; M19.90 Unspecified osteoarthritis, unspecified site; Z98.890 Other specified postprocedural states
CPT/HCPCS: 36415; 71010; 80048; 80162; 81001; 82962; 83880; 85025; 85610; 85730; 99284